=== PATIENT | female | born 1985 | race Caucasian/White ===

== ENCOUNTER 2017-11-29 10:29 | Emergency (ER) | payer MEDICAID ==
[~2017-11-29 10:29] MED LIST: ASPIR 8181 MG PO; AZELASTINE137 MCG/Ac; BACLOFEN20 MG PO; BACTRIM1 TAB PO; BUS10 PO; BUSPIRONE HCL15 MG PO; BUSPIRONE15 M1 PO; CARVEDILOL6.25 M1 PO; CETIRIZINE10 M1; COR3 PO; COR6 PO; COREG6.25 MG PO; DIPHENHYDRAMINE50 MG PO; DULERA IH; GABAPENTIN300 M2 PO; K10 PO; KEP500 PO; KEPPRA1000 M1 PO; L40 PO; LAC PO; LIO10 PO; LOR PO; NASINH; NEU300; NORCO1 TA2 PO; PROAIR IH; SEREVENT D0.046 MG/1 INH; SERTRALINE HYD100 MG PO; SERTRALINE50 M1 PO; TOPIRAMATE50 M1 PO; VIC PO; ZOL50 PO
[2017-11-29 10:37] VITALS: BP 114/67
== END 2017-11-29 13:57 | disposition home or self-care (01) ==
LOC: ED 10:29
DX: H61.22 Impacted cerumen, left ear (principal); H92.02 Otalgia, left ear; J45.909 Unspecified asthma, uncomplicated; I10 Essential (primary) hypertension; E11.9 Type 2 diabetes mellitus without complications; Z88.8 Allergy status to other drugs, medicaments and biological substances; Z88.1 Allergy status to other antibiotic agents; Z91.012 Allergy to eggs

== ENCOUNTER 2018-06-22 13:03 | Inpatient (IN) | payer MEDICAID ==
[~2018-06-22] VITALS: Ht 175.3 cm; Wt 104.8 kg
[2018-06-22 14:47] LABS: BASOPHIL % 0.4 % (0-2); PLATELET COUNT 290 x10^3mcL (130-400)
[2018-06-22 15:01] LABS: CALCIUM 8.3 mg/dL (8.5-10.1); CARBON DIOXIDE 18.8 mmol/L (21-32); CHLORIDE SERUM 91 mmol/L (98-107); CREATININE SERUM 0.6 mg/dL (0.6-1.0); GFR1 > 60 mL/min; GLUCOSE SERUM 115 mg/dL (74-106); POTASSIUM SERUM 3.7 mmol/L (3.5-5.1)
[2018-06-22 15:15] LABS: SODIUM SERUM 121 mmol/L (136-145)
[2018-06-22 16:18] LABS: MAGNESIUM 1.7 mg/dL (1.8-2.4); PHOSPHOROUS 2.7 mg/dL (2.5-4.9)
[2018-06-22 16:19] LABS: CHOLESTEROL/HDL RATIO 4.7
[2018-06-22 16:27] LABS: T3 TOTAL 0.65 ng/mL
[2018-06-22 16:28] LABS: FREE T4 0.93 ng/dL (0.76-1.46); FREE THYROXINE INDEX 1.8 ug/dL (1.4-4.5); T4(THYROXINE) 5.9 ug/dL (4.7-13.3)
[2018-06-22] MEDS ORDERED: KEPPRA500 MG PO (17:16)
[2018-06-22] MEDS ORDERED: COZAAR25 M1 PO (17:17)
[2018-06-22] MEDS ORDERED: IBUPROFEN400 MG PO (17:17)
[2018-06-22] MEDS ORDERED: VIMPAT50 MG PO ×2 (17:17→18:22)
[2018-06-22] MEDS ORDERED: VENTOLIN H0.09 MG/A1 IH (17:17)
[2018-06-22] MEDS ORDERED: SUCRALFATE1 GM PO (17:18)
[2018-06-22] MEDS ORDERED: BACLOFEN20 MG PO (17:18)
[2018-06-22] MEDS ORDERED: TOPAMAX100 MG PO (17:18)
[2018-06-22] MEDS ORDERED: NEU300 PO (17:18)
[2018-06-22] MEDS ORDERED: OXCARBAZEPINE600 M1 PO (17:19)
[2018-06-22] MEDS ORDERED: PANTOPRAZOLE SO40 M1 PO (17:19)
[2018-06-22] MEDS ORDERED: COR6 PO (17:19)
[2018-06-22] MEDS ORDERED: ZOLOFT100 MG PO (17:20)
[2018-06-22] MEDS ORDERED: BUSPIRONE HCL15 MG PO (17:20)
[2018-06-22] MEDS ORDERED: GOOD SENSE ASPI81 M3 PO (17:20)
[2018-06-22] MEDS ORDERED: ARNUITY EL200 MCG/Ac IH (17:21)
[2018-06-22] MEDS ORDERED: SEREVENT D0.046 MG/1 IH (17:21)
[2018-06-22] MEDS ORDERED: NEXIUM40 MG PO (17:46)
[2018-06-22 17:51] VITALS: BP 123/70
[2018-06-22] MEDS ORDERED: oxycarbazepine PO (18:20)
[2018-06-22 21:07] VITALS: BP 112/62
[2018-06-22 22:50] LABS: microscopic required? NO
[2018-06-22 22:59] LABS: UA SPECIFIC GRAVITY <=1.005 (1.005-1.035); urine erythrocyte NEGATIVE (NEGATIVE)
[2018-06-22 23:10] LABS: AMPHETAMINE QUAL UR NONE DETECTED (See below)
[2018-06-23 05:59] VITALS: BP 100/54
[2018-06-23 06:42] LABS: CALCIUM 8.2 mg/dL (8.5-10.1); CARBON DIOXIDE 22.8 mmol/L (21-32); CHLORIDE SERUM 103 mmol/L (98-107); CREATININE SERUM 0.7 mg/dL (0.6-1.0); GFR1 > 60 mL/min; GLUCOSE SERUM 98 mg/dL (74-106); MAGNESIUM 2.4 mg/dL (1.8-2.4); POTASSIUM SERUM 3.5 mmol/L (3.5-5.1); SODIUM SERUM 134 mmol/L (136-145)
[2018-06-23 06:48] LABS: BASOPHIL % 0.5 % (0-2); PLATELET COUNT 275 x10^3mcL (130-400)
[2018-06-23 06:51] LABS: RED CELL DISTRIBUTION WIDTH 15.8 % (11.5-14.5)
[2018-06-23 09:39] VITALS: BP 109/79
[2018-06-23 09:54] VITALS: Ht 175.3 cm; Wt 104.8 kg
[2018-06-23 12:51] VITALS: BP 116/82
[2018-06-23 17:30] VITALS: BP 105/50
[2018-06-23 19:47] VITALS: BP 105/50
[2018-06-23] MEDS ORDERED: BEN50 PO (20:00)
[2018-06-23] MEDS ORDERED: LIPI10 PO (20:01)
[2018-06-23] MEDS ORDERED: LIO10 PO (20:01)
[2018-06-23] MEDS ORDERED: COR6 PO (20:02)
[2018-06-23] MEDS ORDERED: COZ25 PO (20:02)
[2018-06-23] MEDS ORDERED: NIT0.4 SL (20:02)
[2018-06-23] MEDS ORDERED: ECO81 PO (20:03)
[2018-06-23] MEDS ORDERED: NEU300 PO (20:03)
[2018-06-23] MEDS ORDERED: KEP500 PO (20:04)
[2018-06-23] MEDS ORDERED: TOP100 PO (20:05)
[2018-06-23] MEDS ORDERED: SERTRALINE50 M1 PO (20:06)
[2018-06-23] MEDS ORDERED: BUS10 PO (20:06)
[2018-06-23 21:13] VITALS: BP 100/58
== END 2018-06-23 21:16 | disposition short-term general hospital (02) | DRG 243 ==
LOC: ED 13:03 → DU 15:41
PROVIDERS: Emergency Medicine; Family Medicine
DX: K21.9 Gastro-esophageal reflux disease without esophagitis (principal); I71.2 Thoracic aortic aneurysm, without rupture; Q87.410 Marfan syndrome with aortic dilation; M41.50 Other secondary scoliosis, site unspecified; Q87.42 Marfan syndrome with ocular manifestations; Q87.43 Marfan syndrome with skeletal manifestation; I10 Essential (primary) hypertension; J45.909 Unspecified asthma, uncomplicated; G40.909 Epilepsy, unspecified, not intractable, without status epilepticus; Z68.32 Body mass index [BMI] 32.0-32.9, adult
CPT/HCPCS: 83880; 84439; 94150; J1644; J3010; J3475; J7030; J7620; Q0092; Q0163; Q9967